=== PATIENT | male | born 1995 | race Caucasian/White ===

== ENCOUNTER 2020-09-11 21:06 | Emergency (ER) | payer OTHER ==
[2020-09-11 22:05] LABS: HEMOGLOBIN 15.5 gm/dl (14.0-17.5); RED BLOOD COUNT 4.91 M/UL (4.20-5.50); WHITE BLOOD COUNT 4.9 K/UL (4.5-11.0)
[2020-09-11 22:24] LABS: BUN/CREATININE RATIO 8 (0-10)
== END 2020-09-12 00:23 | disposition home or self-care (01) ==
LOC: ER1 21:06
PROVIDERS: Physician Assistant
DX: N50.811 Right testicular pain (principal); N50.812 Left testicular pain; M54.5 Low back pain; G89.29 Other chronic pain; Z87.440 Personal history of urinary (tract) infections
CPT/HCPCS: 80053; 81001; 85025; 99284